=== PATIENT | female | born 1955 | race Caucasian/White ===

== ENCOUNTER 2020-08-24 15:35 | Emergency (ER) | payer MEDICARE, MEDICAID, SELFPAY ==
[2020-08-24 15:46] VITALS: BP 123/64; PULSE 101; RESP 16; TEMP 37.2; O2SAT 99; BMI 28.3
[2020-08-24 15:48] VITALS: BP 123/64; PULSE 101; RESP 16; TEMP 37.2; O2SAT 99; BMI 28.3
--- NOTE | 2020-08-24 16:04 | XR_ITS ---
PROCEDURE INFORMATION: Exam: XR Right Elbow Exam date and time: 08/24/2020 4:04 PM Age: 64 years old Clinical indication: Elbow and shoulder; Patient HX: Fell out of bed, pain to right ribs and shoulder. Lac on elbow; Additional info: Fall TECHNIQUE: Imaging protocol: XR Right elbow. Views: 3 or more views. COMPARISON: CR XR SHOULDER RT MIN 2V 08/24/2020 4:17 PM FINDINGS: Bones/joints: There is no evidence of acute fracture. There is no evidence of joint malalignment or dislocation. Olecranon spur is present. Soft tissues: There are no soft tissue masses or fluid collections. IMPRESSION: 1. No evidence of acute fracture. 2. No evidence of acute dislocation.
--- NOTE | 2020-08-24 16:04 | XR_ITS ---
PROCEDURE INFORMATION: Exam: XR Right Shoulder Exam date and time: 08/24/2020 4:04 PM Age: 64 years old Clinical indication: Patient HX: Fell out of bed, pain to right ribs and shoulder. Lac on elbow; Additional info: Fall TECHNIQUE: Imaging protocol: XR Right shoulder. Views: 2 or more views. COMPARISON: CR XR RIBS RT MIN 3V W [id number] 08/24/2020 4:14 PM FINDINGS: Bones/joints: There is no evidence of acute fracture. There is no evidence of joint malalignment or dislocation. Degenerative changes of the acromioclavicular and glenohumeral joints. Postoperative changes of the lower cervical spine. Soft tissues: There are no soft tissue masses or fluid collections. IMPRESSION: 1. No evidence of acute fracture. 2. No evidence of acute dislocation. 3. Degenerative changes of the acromioclavicular and glenohumeral joints.
--- NOTE | 2020-08-24 16:04 | XR_ITS ---
PROCEDURE INFORMATION: Exam: XR Right Ribs with PA Chest Exam date and time: 08/24/2020 4:04 PM Age: 64 years old Clinical indication: Injury or trauma; Fall; Rib area; Blunt trauma (contusions or hematomas); Patient HX: Fell out of bed, pain to ride ribs and shoulder. Lac on elbow TECHNIQUE: Imaging protocol: XR Right ribs with PA chest. Views: 3 views COMPARISON: No relevant prior studies available. FINDINGS: Lungs: The lungs are hyperinflated, consistent with underlying small airways disease. Granulomatous density noted within the left lung base. Pleural spaces: Unremarkable. No pleural effusion. No pneumothorax. Heart/Mediastinum: Unremarkable. No cardiomegaly. Bones/joints: Postoperative changes of the lower cervical upper thoracic spine. IMPRESSION: 1. The lungs are hyperinflated, consistent with underlying small airways disease. 2. No evidence of acute fracture.
--- NOTE | 2020-08-24 16:38 | HMH.EDUTC ---
[facility] [place] Clinical Impression: Fall from bed Qualifiers: Encounter type: initial encounter Qualified Code(s): W06.XXXA - Fall from bed, initial encounter Shoulder pain, right Qualifiers: Chronicity: acute Qualified Code(s): M25.511 - Pain in right shoulder Skin tear of right elbow without complication Qualifiers: Encounter type: initial encounter Qualified Code(s): S51.011A - Laceration without foreign body of right elbow, initial encounter Contusion of rib on right side Qualifiers: Encounter type: initial encounter Qualified Code(s): S20.211A - Contusion of right front wall of thorax, initial encounter Disposition: Home, Self-Care Condition on Discharge: Good Instructions: DI for Rib Contusion Additional Instructions: I will send Zofran to help with the nausea so you can take pain meds you have at home Follow up with DR Queen next week Return to ER if pain significantly worse, difficulty breathing, etc. Be sure to take a deep breath every hour or so to help avoid penumonia Prescriptions: Lidocaine [Lidoderm 5% transdermal patch] 1 each TP Q24H 10 Days #30 adh..patch Transmission Status: Pending to [id number] ondansetron HCL [Ondansetron 8mg tab*] 8 mg PO TIDP PRN 10 Days #30 tab PRN Reason: Nausea Transmission Status: Pending to [id number] Referrals: Dwayne Queen [Primary Care Provider] - Time of Disposition: 17:14 Medical Decision Making - Saurabh Inquiry Pt receiving controlled substance: No Vital Signs: 08/24/20 15:46 08/24/20 15:48 08/24/20 16:58 Temperature 98.9 F 98.9 F 98 F Temperature Source Oral Oral Pulse Rate 102 H Pulse Rate [Radial] 101 H Pulse Rate [Right] 101 H Respiratory Rate 16 16 16 Blood Pressure 131/57 L Blood Pressure [Right Arm] 123/64 123/64 Blood Pressure Mean [Right Arm] 83 83 Blood Pressure Source [Right Arm] Automatic Cuff Blood Pressure Position [Right Arm] Sitting 02 Sat by Pulse Oximetry 99 99 Oxygen Delivery Method Room Air Room Air - Radiology Data #1 Image(s): Elbow Image Reviewed: Yes I have reviewed radiologist's interpretation Preliminary Findings: Normal/NAD, No Fracture Seen #2 Image(s): Shoulder Image Reviewed: Yes I have reviewed radiologist's interpretation Preliminary Findings: Normal/NAD, No Fracture Seen #3 Image(s): Chest, Other (ribs) Image Reviewed: Yes I have reviewed radiologist's interpretation Preliminary Findings: Normal/NAD, No Fracture Seen Medical Decision Narrative: Xrays are negative for fractures. Patient is on numerous medicines at home, but doesn't have a list with her today and her pharmacy is closed for the holiday. Notably, she is on Plavix for heart stents and cannot take NSAIDs. She is also on Percocet for chronic pain but did not take it today because she was nauseated. [facility] [place] General Stated complaint: AO fell out of bed 0900 injured arm/side/stomach Time Seen by Provider: 08/24/20 16:05 Mode of Arrival: Ambulatory Source of Information: Patient Limitations: No Limitations Description of Symptoms (Recalled from Triage Doc. by RN): pt fell out of bed this am while still asleep. pt c/o R side pain from the top of her axilla down to the top of her hip, pain in her shoulder down to her elbow on the R side. pt denies hip pain. pt has a L shaped skin tear on her R elbow. HEENT Symptoms (Recalled from RN notes): No Resp Symptoms (Recalled from RN notes): No Skin Symptoms (Recalled from RN notes): No MS Symptoms (Recalled from RN notes): Yes (R sided pain from a fall) Functional Status (Recalled from RN notes): na - History of Present Illness Provider Complaint: Patient states that she rolled out of bed this am, landing on her right side. She states she was completely asleep until she struck the ground, so she did not stop herself from falling at all. She struck her right side on the ground (concrete). She denies LOC. States that she woke up when she hit th
[2020-08-24 16:58] VITALS: BP 131/57; PULSE 102; RESP 16; TEMP 36.6
== END 2020-08-24 17:26 | disposition home or self-care (01) ==
PROVIDERS: Emergency Provider Physician Assistant; PCP Pediatrics
DX: S51.011A Laceration without foreign body of right elbow, initial encounter (principal); S20.211A Contusion of right front wall of thorax, initial encounter; W06.XXXA Fall from bed, initial encounter; Y92.013 Bedroom of single-family (private) house as the place of occurrence of the external cause
CPT/HCPCS: G0463; 71101; 73030; 73080; 99202